=== PATIENT | female | born 1965 | race Caucasian/White ===

== ENCOUNTER 2020-03-08 11:30 | Inpatient (IN) | payer OTHER ==
[2020-03-08] MEDS ORDERED: MAGNESIUM CITRATE 300 ML BOTTLE PO PRN (13:25)
[2020-03-08] MEDS ORDERED: ONDANSETRON *ODT* 4 MG TABLET SL PRN (13:25)
[2020-03-08] MEDS ORDERED: MENTHOL/PHENOL 1 EACH UD MM PRN (13:25)
[2020-03-08] MEDS ORDERED: ACETAMINOPHEN 325 MG TABLET (FP) PO PRN (13:25)
[2020-03-08] MEDS ORDERED: LORazepam 1 MG TABLET PO PRN (13:25)
[2020-03-08] MEDS ORDERED: MAGNESIUM HYDROX 2400MG/30ML ORAL SUSPENSION 30 ML CUP PO PRN (13:25)
[2020-03-08] MEDS ORDERED: MAG HYDROX/AL HYDROX/SIMETH 30 ML UNIT-DOSE CUP PO PRN (13:25)
[2020-03-08 13:43] VITALS: BMI 24.0
[2020-03-08] MEDS: hydrOXYzine PAMOATE 25 MG CAPSULE (FP) PO SCH ×3 (15:01→22:09)
[2020-03-08] MEDS: LORazepam 2 MG TABLET PO SCH ×2 (17:12→22:09)
[2020-03-08] MEDS: LIDOCAINE 5% TOPICAL PATCH TP SCH (17:36)
[2020-03-08] MEDS: IBUPROFEN 400 MG TABLET (FP) PO PRN (18:55)
[2020-03-08] MEDS: MELATONIN 5 MG TABLETS PO SCH (22:09)
[2020-03-08] MEDS: THIAMINE HCL 100 MG TABLET (FP) PO SCH (22:09)
[2020-03-08] MEDS: METHOCARBAMOL 500 MG TABLET PO PRN (23:13)
[2020-03-08] MEDS: LIDOCAINE PATCH REMOVAL MC SCH (23:15)
[2020-03-09 00:53] LABS: PH,URINE 6.5 (5.0-8.0); URINE APPEARANCE CLEAR; URINE BILIRUBIN NEGATIVE (NEGATIVE); URINE COLOR YELLOW; URINE GLUCOSE (UA) NEGATIVE (NEGATIVE); URINE KETONE NEGATIVE (NEGATIVE); URINE LEUK ESTERASE NEGATIVE (NEGATIVE); URINE NITRITE NEGATIVE (NEGATIVE); URINE PROTEIN NEGATIVE (NEGATIVE); URINE UROBILINOGEN 0.2 mg/dL (0.2-1.0)
[2020-03-09] MEDS: hydrOXYzine PAMOATE 25 MG CAPSULE (FP) PO SCH ×5 (05:08→22:00)
[2020-03-09] MEDS: LORazepam 2 MG TABLET PO SCH ×4 (05:08→22:01)
[2020-03-09] MEDS: IBUPROFEN 400 MG TABLET (FP) PO PRN ×2 (05:32→20:05)
[2020-03-09] MEDS ORDERED: LOPERAMIDE HCL 2 MG CAPSULE PO ONE (09:30)
[2020-03-09] MEDS: amLODIPine BESYLATE 10 MG TABLET (FP) PO SCH (10:12)
[2020-03-09] MEDS: PRENATAL VITAMINS W/ FOLIC ACID TABLET (FP) PO SCH (10:12)
[2020-03-09] MEDS: LIDOCAINE 5% TOPICAL PATCH TP SCH (10:12)
[2020-03-09 11:30] LABS: POTASSIUM 4.7 mmol/L (3.5-5.1)
[2020-03-09 11:34] LABS: ALBUMIN 3.1 g/dl (3.4-5.0); BLOOD UREA NITROGEN 23.8 mg/dL (7-18); CALCIUM 8.6 mg/dL (8.5-10.1); HEMATOCRIT 38.6 % (32.4-45.2); HEMOGLOBIN 12.7 GM/dL (10.7-15.3); MCH 34.6 pg (25.7-33.7); MEAN PLT VOLUME 10.2 fl (7.5-11.1); PLATELET COUNT 167 K/MM3 (134-434); RBC 3.68 M/mm3 (3.60-5.2); RDW 13.7 % (11.6-15.6); WHITE BLOOD COUNT 4.9 K/mm3 (4.0-10.0)
[2020-03-09 11:37] LABS: CREATININE 0.7 mg/dL (0.55-1.3)
[2020-03-09 11:39] LABS: BILIRUBIN,TOTAL 0.6 mg/dL (0.2-1); TOT PROT 5.8 g/dl (6.4-8.2)
[2020-03-09] MEDS ORDERED: LEVOTHYROXINE NA 200 MCG TABLET PO SCH (12:30)
[2020-03-09] MEDS: LEVOTHYROXINE 100 MCG, LEVOTHYROXINE 75 MCG PO SCH (13:56)
[2020-03-09] MEDS: METHOCARBAMOL 500 MG TABLET PO PRN ×2 (13:58→20:05)
[2020-03-09] MEDS: BISMUTH SUBSALICYLATE 524 MG/30 ML UD PO PRN (17:30)
[2020-03-09] MEDS: LIDOCAINE PATCH REMOVAL MC SCH (21:28)
[2020-03-09] MEDS: MELATONIN 5 MG TABLETS PO SCH (22:01)
[2020-03-09] MEDS: THIAMINE HCL 100 MG TABLET (FP) PO SCH (22:01)
[2020-03-10] MEDS: LORazepam 1 MG TABLET PO SCH ×4 (05:16→22:02)
[2020-03-10] MEDS: hydrOXYzine PAMOATE 25 MG CAPSULE (FP) PO SCH ×5 (05:16→22:02)
[2020-03-10] MEDS: IBUPROFEN 400 MG TABLET (FP) PO PRN ×3 (06:05→18:23)
[2020-03-10] MEDS: LEVOTHYROXINE 100 MCG, LEVOTHYROXINE 75 MCG PO SCH (06:09)
[2020-03-10] MEDS ORDERED: MASKS NR ONE (08:27)
[2020-03-10] MEDS: BISMUTH SUBSALICYLATE 524 MG/30 ML UD PO PRN ×3 (09:01→17:25)
[2020-03-10] MEDS ORDERED: LOPERAMIDE HCL 2 MG CAPSULE PO ONE (09:45)
[2020-03-10] MEDS: LIDOCAINE 5% TOPICAL PATCH TP SCH (10:13)
[2020-03-10] MEDS: PRENATAL VITAMINS W/ FOLIC ACID TABLET (FP) PO SCH (10:13)
[2020-03-10] MEDS: amLODIPine BESYLATE 10 MG TABLET (FP) PO SCH (10:13)
[2020-03-10] MEDS: METHOCARBAMOL 500 MG TABLET PO PRN ×2 (12:34→18:25)
[2020-03-10] MEDS: ACETAMINOPHEN 325 MG TABLET (FP) PO PRN ×2 (16:37→23:52)
[2020-03-10] MEDS ORDERED: traZODone HCL 50 MG TABLET (FP) PO SCH (22:00)
[2020-03-10] MEDS: THIAMINE HCL 100 MG TABLET (FP) PO SCH (22:02)
[2020-03-10] MEDS: LIDOCAINE PATCH REMOVAL MC SCH (22:02)
[2020-03-10] MEDS: MELATONIN 5 MG TABLETS PO SCH (22:03)
[2020-03-11] MEDS ORDERED: LORazepam 0.5 MG TABLET PO PRN
[2020-03-11] MEDS: METHOCARBAMOL 500 MG TABLET PO PRN ×4 (01:49→22:21)
[2020-03-11] MEDS: IBUPROFEN 400 MG TABLET (FP) PO PRN ×2 (01:49→10:26)
[2020-03-11] MEDS: LORazepam 0.5 MG TABLET PO SCH ×4 (05:22→22:19)
[2020-03-11] MEDS: ACETAMINOPHEN 325 MG TABLET (FP) PO PRN ×2 (05:22→19:07)
[2020-03-11] MEDS: hydrOXYzine PAMOATE 25 MG CAPSULE (FP) PO SCH ×5 (05:22→22:20)
[2020-03-11] MEDS: LEVOTHYROXINE 100 MCG, LEVOTHYROXINE 75 MCG PO SCH (06:36)
[2020-03-11] MEDS: BISMUTH SUBSALICYLATE 524 MG/30 ML UD PO PRN ×3 (08:20→17:37)
[2020-03-11] MEDS: amLODIPine BESYLATE 10 MG TABLET (FP) PO SCH (10:25)
[2020-03-11] MEDS: LIDOCAINE 5% TOPICAL PATCH TP SCH (10:25)
[2020-03-11] MEDS: PRENATAL VITAMINS W/ FOLIC ACID TABLET (FP) PO SCH (10:25)
[2020-03-11] MEDS ORDERED: DIPHENOXYLATE 2.5/ATROPINE.025 1 COMBO TABLET PO ONE (10:46)
[2020-03-11] MEDS ORDERED: LIDOCAINE 5% TOPICAL PATCH TP SCH (11:15)
[2020-03-11] MEDS: IBUPROFEN 600 MG TABLET (FP) PO PRN ×2 (15:58→22:20)
[2020-03-11] MEDS ORDERED: LIDOCAINE PATCH REMOVAL MC SCH (22:00)
[2020-03-11] MEDS ORDERED: traZODone HCL 100 MG TABLET (FP) PO SCH (22:00)
[2020-03-11] MEDS: LIDOCAINE PATCH REMOVAL MC SCH (22:19)
[2020-03-11] MEDS: MELATONIN 5 MG TABLETS PO SCH (22:20)
[2020-03-11] MEDS: THIAMINE HCL 100 MG TABLET (FP) PO SCH (22:20)
[2020-03-12] MEDS ORDERED: LORazepam 0.5 MG TABLET PO ONE (05:00)
[2020-03-12] MEDS: hydrOXYzine PAMOATE 25 MG CAPSULE (FP) PO SCH (05:17)
[2020-03-12 06:02] VITALS: BP 125/78; PULSE 63; TEMP 96.9
[2020-03-12] MEDS: LEVOTHYROXINE 100 MCG, LEVOTHYROXINE 75 MCG PO SCH (06:18)
[2020-03-12] MEDS: METHOCARBAMOL 500 MG TABLET PO PRN (08:28)
[2020-03-12] MEDS: IBUPROFEN 600 MG TABLET (FP) PO PRN (08:28)
[2020-03-12] MEDS: BISMUTH SUBSALICYLATE 524 MG/30 ML UD PO PRN (08:29)
== END 2020-03-12 09:35 | disposition home or self-care (01) | DRG 897 ==
LOC: YASAS 11:30 → Y3N 13:52
PROVIDERS: ADMIT Allergy & Immunology; ATTEND Allergy & Immunology
PROC: HZ2ZZZZ Detoxification Services for Substance Abuse Treatment (ICD-10-PCS; principal; 2020-03-08)
DX: F10.230 Alcohol dependence with withdrawal, uncomplicated (principal); F10.24 Alcohol dependence with alcohol-induced mood disorder; F31.9 Bipolar disorder, unspecified; F43.10 Post-traumatic stress disorder, unspecified; F90.9 Attention-deficit hyperactivity disorder, unspecified type; I10 Essential (primary) hypertension; E03.9 Hypothyroidism, unspecified; G62.9 Polyneuropathy, unspecified; M54.5 Low back pain; G89.29 Other chronic pain; R74.01 Elevation of levels of liver transaminase levels; R79.89 Other specified abnormal findings of blood chemistry; M16.12 Unilateral primary osteoarthritis, left hip; Z98.84 Bariatric surgery status; Z91.011 Allergy to milk products
CPT/HCPCS: 36415; 80053; 81003; 85027; 86780; 93005; 93010; C9803; U0003

== ENCOUNTER 2023-06-23 11:26 | Inpatient (IN) | payer OTHER ==
[2023-06-23 12:03] VITALS: BMI 23.3
[2023-06-23] MEDS ORDERED: NALOXONE HCL (KLOXXADO) 8 MG SPRAY NS PRN (12:36)
[2023-06-23] MEDS ORDERED: BENZOCAINE/MENTHOL (CHLORASEPTIC ) LOZENGE MM PRN (12:36)
[2023-06-23] MEDS ORDERED: ONDANSETRON *ODT* 4 MG TABLET SL PRN (12:36)
[2023-06-23] MEDS ORDERED: MAGNESIUM HYDROX 2400MG/30ML ORAL SUSPENSION 30 ML CUP PO PRN (12:36)
[2023-06-23] MEDS ORDERED: DICYCLOMINE HCL 10 MG CAPSULE PO PRN (12:36)
[2023-06-23] MEDS ORDERED: IBUPROFEN 400 MG TABLET (FP) PO PRN (12:36)
[2023-06-23] MEDS ORDERED: POLYETHYLENE GLYCOL (HEALTHYLAX) 3350 17 GM PACKET PO PRN (12:36)
[2023-06-23] MEDS ORDERED: NALOXONE HCL 0.4 MG/ML VIAL IM PRN (12:36)
[2023-06-23] MEDS ORDERED: ACETAMINOPHEN 325 MG TABLET (FP) PO PRN (12:36)
[2023-06-23] MEDS ORDERED: guaiFENesin 600 MG TABLET.ER (FP) PO PRN (12:36)
[2023-06-23] MEDS ORDERED: BENZONATATE 200 MG CAPSULE PO PRN (12:36)
[2023-06-23] MEDS ORDERED: IBUPROFEN 600 MG TABLET (FP) PO ONE (12:46)
[2023-06-23] MEDS ORDERED: hydrOXYzine PAMOATE 25 MG CAPSULE (FP) PO ONE (12:46)
[2023-06-23] MEDS ORDERED: LORazepam 1 MG TABLET ONE (12:46)
[2023-06-23] MEDS: LORazepam 1 MG TABLET PO ONE (13:08)
[2023-06-23] MEDS: hydrOXYzine PAMOATE 25 MG CAPSULE (FP) PO PRN (13:09)
[2023-06-23] MEDS: IBUPROFEN 600 MG TABLET (FP) PO PRN (13:09)
[2023-06-23] MEDS ORDERED: PRENATAL VITAMINS W/ FOLIC ACID TABLET (FP) PO ONE (13:10)
[2023-06-23] MEDS: PRENATAL VITAMINS W/ FOLIC ACID TABLET (FP) PO SCH (13:35)
[2023-06-23] MEDS: LORazepam 2 MG TABLET PO SCH (18:02)
[2023-06-23] MEDS: DEXTROAMPHETAMINE/AMPHETAMINE 10 MG CAP.ER.24H PO SCH (18:03)
[2023-06-23] MEDS: traZODone HCL 100 MG TABLET (FP) PO SCH (21:22)
[2023-06-23] MEDS: buPROPion HCL 100 MG TABLET PO SCH (21:22)
[2023-06-23] MEDS: MELATONIN 5 MG TABLETS PO SCH (21:23)
[2023-06-23] MEDS: LORazepam 1 MG TABLET PO PRN (21:26)
[2023-06-23] MEDS: THIAMINE HCL 100 MG TABLET (FP) PO SCH (22:41)
[2023-06-23] MEDS: METOPROLOL TARTRATE 50 MG TABLET (FP) PO ONE (22:41)
[2023-06-24] MEDS: METHOCARBAMOL 500 MG TABLET PO PRN (02:03)
[2023-06-24] MEDS: LEVOTHYROXINE 100 MCG, LEVOTHYROXINE 75 MCG PO SCH ×2 (08:43→10:55)
[2023-06-24] MEDS ORDERED: LEVOTHYROXINE NA 200 MCG TABLET PO SCH (10:00)
[2023-06-24] MEDS: amLODIPine BESYLATE 10 MG TABLET (FP) PO SCH (10:14)
[2023-06-24] MEDS: buPROPion HCL 100 MG TABLET PO SCH (10:55)
[2023-06-24] MEDS: MAG HYDROX/AL HYDROX/SIMETH 30 ML UNIT-DOSE CUP PO PRN (17:37)
[2023-06-25] MEDS: LORazepam 1 MG TABLET PO SCH (05:56)
[2023-06-25] MEDS: DEXTROAMPHETAMINE/AMPHETAMINE 10 MG CAP.ER.24H PO SCH (07:34)
[2023-06-25] MEDS: LISINOPRIL 10 MG TABLET PO SCH (09:32)
[2023-06-25] MEDS ORDERED: ACETAMINOPHEN 325 MG TABLET (FP) PO PRN (11:53)
[2023-06-25] MEDS: LIDOCAINE 5% TOPICAL PATCH TP SCH (12:14)
[2023-06-25] MEDS: BISMUTH SUBSALICYLATE 524 MG/30 ML PO PRN (19:25)
[2023-06-25] MEDS: LIDOCAINE PATCH REMOVAL MC SCH (22:03)
[2023-06-26] MEDS ORDERED: LORazepam 0.5 MG TABLET PO PRN
[2023-06-26] MEDS: LORazepam 0.5 MG TABLET PO SCH (05:51)
[2023-06-26] MEDS: IBUPROFEN 400 MG TABLET (FP) PO PRN (05:54)
[2023-06-26] MEDS ORDERED: traZODone HCL 50 MG TABLET (FP) ONE (22:08)
[2023-06-27] MEDS: LORazepam 0.5 MG TABLET PO ONE (05:53)
[2023-06-27] MEDS: LEVOTHYROXINE 100 MCG, LEVOTHYROXINE 75 MCG PO SCH (07:10)
[2023-06-27] MEDS: LOPERAMIDE HCL 2 MG CAPSULE PO PRN (09:20)
[2023-06-27 11:00] VITALS: BP 128/77; PULSE 90; RESP 18; TEMP 97.8
== END 2023-06-27 11:29 | disposition home or self-care (01) | DRG 897 ==
LOC: YASAS 11:26 → Y6N 13:14
PROVIDERS: ADMIT Allergy & Immunology; ATTEND Surgery
PROC: HZ2ZZZZ Detoxification Services for Substance Abuse Treatment (ICD-10-PCS; principal; 2023-06-23)
DX: F10.230 Alcohol dependence with withdrawal, uncomplicated (principal); F10.24 Alcohol dependence with alcohol-induced mood disorder; F32.A Depression, unspecified; F98.8 Other specified behavioral and emotional disorders with onset usually occurring in childhood and adolescence; E03.9 Hypothyroidism, unspecified; I10 Essential (primary) hypertension; M54.50 Low back pain, unspecified; G89.29 Other chronic pain; Z87.19 Personal history of other diseases of the digestive system; Z62.810 Personal history of physical and sexual abuse in childhood; Z63.8 Other specified problems related to primary support group; Z98.84 Bariatric surgery status